=== PATIENT | male | born 1995 | race American Indian/Alaskan Native ===

== ENCOUNTER 2020-04-24 20:34 | Emergency (ER) | payer OTHER ==
[~2020-04-24] VITALS: Ht 182.9 cm; Wt 73.9 kg
== END 2020-04-24 22:42 | disposition home or self-care (01) ==
LOC: ER 20:34
DX: R07.89 Other chest pain (principal); R07.81 Pleurodynia; V48.5XXA Car driver injured in noncollision transport accident in traffic accident, initial encounter; Y92.410 Unspecified street and highway as the place of occurrence of the external cause
CPT/HCPCS: 71046; 99283-25; A9270